=== PATIENT | male | born 1960 | race Two or more races ===

== ENCOUNTER 2021-07-27 19:06 | Emergency (ER) | payer OTHER ==
[~2021-07-27] VITALS: Ht 177.8 cm; Wt 83.9 kg
[2021-07-27] MEDS ORDERED: XARELTO20 MG PO (19:42)
== END 2021-07-28 00:40 | disposition home or self-care (01) ==
LOC: ER 19:06
DX: R07.89 Other chest pain (principal); V19.9XXA Pedal cyclist (driver) (passenger) injured in unspecified traffic accident, initial encounter; Y93.9 Activity, unspecified; Y92.89 Other specified places as the place of occurrence of the external cause; I10 Essential (primary) hypertension; Z88.6 Allergy status to analgesic agent; Z88.0 Allergy status to penicillin